=== PATIENT | female | born 1955 | race Caucasian/White ===

== ENCOUNTER 2023-02-04 14:01 | Emergency (ER) | payer MEDICARE, BC ==
[2023-02-04 14:10] VITALS: PULSE 67
--- NOTE | 2023-02-04 14:35 | ED ---
Recheck HPI - General Chief Complaint: Recheck/Abnormal Lab/Rx Stated Complaint: fall Time Seen by Provider: 02/04/23 14:13 Source: patient, RN notes reviewed Mode of arrival: ambulatory Limitations: no limitations - History of Present Illness Initial Comments: 67-year-old female presents emergency Department chief complaint of right-sided mandibular pain. Patient states she had a fall several days ago had x-rays at urgent care and repair of her laceration of her chin. Patient states that she's been having right-sided pain, clicking and popping ever since her fall. Patient follow-up with her dentist that she had right sided tooth pain but was unable to have exam because of her discomfort and unable to open her mouth. Dentist contacted oral surgeon who recommended patient come emergency from for CAT scan. Patient complains of headache, dizziness, neck pain or any other injuries. - Related Data Allergies Allergy/AdvReac Type Severity Reaction Status Date / Time No Known Allergies Allergy Verified 02/04/23 14:10 Review of Systems ROS Statement: Those systems with pertinent positive or pertinent negative responses have been documented in the HPI. ROS Other: All systems not noted in ROS Statement are negative. Past Medical History Past Medical History: No Reported History History of Any Multi-Drug Resistant Organisms: None Reported Past Surgical History: Orthopedic Surgery Past Psychological History: No Psychological Hx Reported Smoking Status: Current every day smoker Past Alcohol Use History: None Reported Past Drug Use History: None Reported General Exam Limitations: no limitations General appearance: alert, in no apparent distress Head exam: Present: atraumatic, normocephalic, normal inspection Eye exam: Present: normal appearance, PERRL, EOMI. Absent: scleral icterus, conjunctival injection, periorbital swelling ENT exam: Present: mucous membranes moist, TM's normal bilaterally, normal external ear exam, other (Mandibular tenderness). Absent: normal oropharynx (Trismus) Neck exam: Present: normal inspection, full ROM. Absent: tenderness, m eningismus, lymphadenopathy Respiratory exam: Present: normal lung sounds bilaterally. Absent: respiratory distress, wheezes, rales, rhonchi, stridor Cardiovascular Exam: Present: regular rate, normal rhythm, normal heart sounds. Absent: systolic murmur, diastolic murmur, rubs, gallop, clicks Course Vital Signs 02/04/23 14:06 Temperature 98.2 F Pulse Rate 67 Respiratory 18 Rate Blood Pressure 120/78 O2 Sat by Pulse 99 Oximetry Medical Decision Making - Medical Decision Making Was pt. sent in by a medical professional or institution (JOSEPH Reyna, QUALITY COMPLIANCE COORDINATOR, urgent care, hospital, or fdc...) When possible be specific @ -Dentist Did you speak to anyone other than the patient for history (EMS, parent, family, police, friend...)? What history was obtained from this source @ -No Did you review nursing and triage notes (agree or disagree)? Why? @ -I reviewed and agree with nursing and triage notes Were old charts reviewed (outside hosp., previous admission, EMS record, old EKG, old radiological studies, urgent care reports/EKG's, fdc records)? Report findings @ -No old charts were reviewed Differential Diagnosis (chest pain, altered mental status, abdominal pain women, abdominal pain men, vaginal bleeding, weakness, fever, dyspnea, syncope, headac he, dizziness, GI bleed, back pain, seizure, CVA, palpatations, mental health, musculoskeletal)? @ -Mandibular dislocation, mandibular fracture, mandibular contusion EKG interpreted by me (3pts min.). @ -None X-rays interpreted by me (1pt min.). @ -None done CT interpreted by me (1pt min.). @ -CT shows evidence of right subclavicular mandibular fracture U/S interpreted by me (1pt. min.). @ -None done What testing was considered but not performed or refused? (CT, X-rays, U/S, labs)? Why? @ -None What meds were considered but not given or refused? Why? @ -None Did you discuss the management of the patient with other professionals (professionals i.e. JOSEPH Reyna, QUALITY COMPLIANCE COORDINATOR, lab, RT, psych nurse, social services specialist, world language teacher, teacher, retail loan officer, classification case manager)? Give summary @ -Dr. Almazan oral surgeon who recommended patient to follow-up on Tuesday, soft diet Was smoking cessation discussed for >3mins.? @ -No Was critical care preformed (if so, how long)? @ -No Were there social determinants of health that impacted care today? How? (Homelessness, low income, unemployed, alcoholism, drug addiction, transportation, low edu. Level, literacy, decrease access to med. care, nursing home, rehab)? @ -No Was there de-escalation of care discussed even if they declined (Discuss DNR or withdrawal of care, Hospice)? DNR status @ -No What co-morbidities impacted this encounter? (DM, HTN, Smoking, COPD, CAD, Cancer, CVA, ARF, Chemo, Hep., AIDS, mental health diagnosis, sleep apnea, morbid obesity)? @ -None Was patient admitted / discharged? Hospital course, mention meds given and route, prescriptions, significant lab abnormalities, going to OR and other pertinent info. @ -Discharge patient will follow-up with oral surgery on Tuesday. Patient offered pain medication patient declined Undiagnosed new problem with uncertain prognosis? @ -No Drug Therapy requiring intensive monitoring for toxicity (Heparin, Nitro, Insulin, Cardizem)? @ -No Were any procedures done? @ -No Diagnosis/symptom? @ -Mandibular fracture Acute, or Chronic, or Acute on Chronic? @ -Acute Uncomplicated (without systemic symptoms) or Complicated (systemic symptoms)? @ -Uncomplicated Side effects of treatment? @ -No Exacerbation, Progression, or Severe Exacerbation? @ -No Poses a threat to life or bodily function? How? (Chest pain, [place], [place], pneumonia, PE, COPD, DKA, ARF, appy, cholecystitis, CVA, Diverticulitis, Homicidal, Suicidal, threat to staff... and all critical care pts) @ -No Disposition Clinical Impression: Mandibular fracture, closed Disposition: HOME SELF-CARE Condition: Stable Instructions (If sedation given, give patient instructions): Jaw Fracture in Adults (ED) Additional Instructions: Please return to the Emergency Department if symptoms worsen or any other concerns. Is patient prescribed a controlled substance at d/c from ED?: No Referrals: Jef Ortega DO [Primary Care Provider] - 1-2 days Pedro Almazan DDS [STAFF PHYSICIAN] - 1-2 days Time of Disposition: 15:09
--- NOTE | 2023-02-04 14:55 | CT ---
EXAMINATION TYPE: CT facial bones wo con DATE OF EXAM: 02/04/2023 COMPARISON: None HISTORY: RT mandibular pain, possible fracture CT DLP: 375.7 mGycm Automated exposure control for dose reduction was used. TECHNIQUE: CT scan of the sinuses is performed without contrast, axial images are obtained, coronal r eformatted images are also reviewed. FINDINGS: There is discontinuity in the region of the right mandibular condyle and neck but the margins of the separation appear well corticated suggesting remote fracture. Remaining osseous structures of the fac ial bones are intact. The paranasal sinuses including the frontal, ethmoid, sphenoid, and maxillary sinuses bilaterally ar e well-aerated without abnormal opacification. The ostiomeatal complex is patent bilaterally on the coronal images. Visualized portion of mastoid air cells show no abnormal opacification. The globes are intact bilate rally. IMPRESSION: 1. No evidence of acute facial bone fracture. 2. Findings raise the question of chronic injury to the right mandible in the region of the neck/subc ondylar region.
[2023-02-04 15:19] VITALS: BP 125/76; RESP 16; TEMP 98.1
== END 2023-02-04 15:25 | disposition home or self-care (01) ==
LOC: EC 14:01
DX: S02.609A Fracture of mandible, unspecified, initial encounter for closed fracture (principal); F17.200 Nicotine dependence, unspecified, uncomplicated; W19.XXXA Unspecified fall, initial encounter
CPT/HCPCS: 70486; 99283